=== PATIENT | female | born 1940 | race Caucasian/White ===

== ENCOUNTER 2022-03-25 00:18 | Inpatient (IN) | payer MEDICARE, OTHER ==
[~2022-03-25] VITALS: Ht 149.9 cm; Wt 49.9 kg
[2022-03-25 02:47] VITALS: BP 142/71
[2022-03-25] MEDS ORDERED: ACETAMINOPHEN 325 MG TABLET PO PRN (03:00)
[2022-03-25] MEDS ORDERED: MAGNESIUM HYDROXIDE 30 ML UDC PO PRN (03:00)
[2022-03-25] MEDS ORDERED: BLOOD SUGAR DIAGNOSTIC 1 EACH STRIP IN ONE (03:00)
[2022-03-25] MEDS ORDERED: TEMAZEPAM 7.5 MG CAPSULE PO PRN (03:00)
[2022-03-25] MEDS ORDERED: MAG HYDROX/AL HYDROX/SIMETH 30 ML UDC PO PRN (03:00)
[2022-03-25] MEDS ORDERED: DULO60CA45 PO (03:18)
[2022-03-25] MEDS ORDERED: ALEN70TA80 MT (03:18)
[2022-03-25] MEDS ORDERED: PREG25CA51 MT (03:18)
[2022-03-25] MEDS ORDERED: CELE100C98 MT (03:18)
[2022-03-25] MEDS ORDERED: GABA-532 MT (03:18)
[2022-03-25] MEDS ORDERED: CLON1TAB12 MT (03:18)
[2022-03-25] MEDS ORDERED: HYDR-4675 PO (03:18)
[2022-03-25] MEDS ORDERED: TRAZ-182 MT (03:18)
[2022-03-25] MEDS ORDERED: NALO4SPR (03:18)
[2022-03-25] MEDS ORDERED: LIDO1ADH43 TOP (03:18)
[2022-03-25] MEDS ORDERED: FLUT1BLS6 MT (03:18)
[2022-03-25] MEDS ORDERED: FAMO40TA7 MT (03:18)
[2022-03-25] MEDS ORDERED: LEVO75TA7 MT (03:18)
[2022-03-25] MEDS ORDERED: NICO-676 TP (03:23)
--- NOTE | 2022-03-25 03:27 | NUR ---
RN NOTE: ADMITTED A 81-Y/O, FEMALE, FROM [facility]. INITIALLY PT CAME FROM HOME. ADMITTED ON A 5150 HOLD FOR DTS/GD. PER HOLD, PATIENT PRESENTED TO THE ED FOR ALCOHOL INTOXICATION AND MADE SUICIDAL STATEMENTS TO DAUGHTER AND FRIEND SHE WANTS TO END HER LIFE. PT ALSO UNABLE TO PROVIDE SELF CARE PLAN AT THIS TIME. UPON FACE TO FACE EVALUATION, PATIENT IS ALERT AND ORIENTED X3, ANXIOUS, DEPRESSED, COOPERATIVE TO CARE. SKIN ASSESSMENT DONE. PT REFUSED FLU/PNEUMONIA VACCINE. PT ALSO REFUSED TO COMMENT ABOUT FLU/PNA VACCINATION AND REFUSING TO GET ONE. ALL BELONGINGS WERE SCREENED FOR CONTRABAND. PATIENT'S RIGHTS WERE DISCUSSED AND BOOKLET WAS GIVEN. CONTACTED DR. FAN AND HOSPITALIST ALYSSA MANDEL AND INFORMED THEM OF THE ADMISSION. BED IN LOWEST POSITION, LOCKED. SAFETY PRECAUTIONS MAINTAINED. WILL CONTINUE TO MONITOR Q15 MINS FOR MOOD, SAFETY AND BEHAVIOR. Addendum: 03/25/22 at 0553 by PARAS GALLEGO RN PATIENT HAS A HARD HEARING ON HER RIGHT EAR. PATIENT HAS NO HEARING AID.
[2022-03-25] MEDS ORDERED: CELECOXIB 100 MG CAPSULE PO PRN (03:30)
[2022-03-25] MEDS ORDERED: ALENDRONATE 70 MG TABLET PO SCH (06:00)
[2022-03-25] MEDS ORDERED: HYDROCODONE/APAP 5/325MG TABLET PO PRN (07:00)
[2022-03-25 08:00] VITALS: BP 144/85
[2022-03-25 08:07] LABS: CREATININE 0.6 mg/dL (0.6-1.3)
[2022-03-25 08:11] LABS: CHOLESTEROL 180 mg/dL (<200); HDL CHOLESTEROL 86 mg/dL (40-60); LDL 86 mg/dL (0-99); TRIGLYCERIDES 65 mg/dL (30-150)
[2022-03-25] MEDS: LEVOTHYROXINE SODIUM 75 MCG TABLET PO SCH (08:24)
[2022-03-25] MEDS ORDERED: PREGABALIN 25 MG CAPSULE PO SCH (09:00)
[2022-03-25] MEDS: PREGABALIN 25 MG CAPSULE PO SCH ×3 (09:00→17:00)
[2022-03-25] MEDS: LIDOCAINE 5% (PATCH) 1 EA PATCH TP SCH (09:38)
[2022-03-25] MEDS: NICOTINE PATCH (14MG) 14 MG PATCH.TD24 TD SCH (09:38)
[2022-03-25] MEDS: DULOXETINE HCL 30 MG CAPSULE.DR PO SCH (09:39)
--- NOTE | 2022-03-25 09:55 | NUR ---
NURSE NOTE: PT C/O PAIN AT LEVEL 9/10. NORCO PO ADMINISTERED ORDERED. PT CYNTHIA WELL. WILL CONT TO MONITOR.
--- NOTE | 2022-03-25 10:45 | NUR ---
NURSE NOTE: PER PT FEELING BETTER. NORCO EFFECTIVE AT THIS TIME. WILL CONT TO MONITOR.
--- NOTE | 2022-03-25 11:11 | NUR ---
PEGGY Clinical Note: Pt placed on a 5150 hold for GD and danger to self. Per hold, pt has been evicted and has been having suicidal thoughts. Pt has been drinking consistently. Patient was residing at [address] [place] [address]. Unsure if pt will return back. Pt's hold indicated that pt was evicted. Pt reported to this policy writer sales that she has a new apartment in [facility] but was unable to give address. Pt stated to contact friend Regis ([phone]) to gather further collateral.
--- NOTE | 2022-03-25 11:11 | NUR ---
PEGGY Initial Discharge Note: Patient was residing at [address] [place] [address]. Unsure if pt will return back. Pt's hold indicated that pt was evicted. Pt reported to this comic writer that she has a new apartment in [facility] but was unable to give address. Pt stated to contact friend Regis ([phone]) to gather further collateral. PEGGY will work with the pt, family, and MD to help coordinate appropriate discharge.
--- NOTE | 2022-03-25 11:12 | NUR ---
Social Work Note/Substance Abuse Intervention: Patient was provided with a brief substance abuse intervention and referred to [facility] ([phone]), [facility] ([phone]), and [facility] ([phone]) for drinking beer and wine.
--- NOTE | 2022-03-25 12:33 | NUR ---
PEGGY Family Contact: PEGGY contacted pt's daughter Faye ([phone]) and discussed treatment plan and discharge plan. PEGGY explained 1916/9075 process. She stated that pt does not have a place to go to and that she was evicted. She stated that she cannot go back to her friends house Regis he will not want her back. PEGGY will confirm with Regis. Daughter stated but would need a nursing facility.
--- NOTE | 2022-03-25 13:09 | NUR ---
PEGGY Friend Contact: SW attempted to contact pt's friend Regis ([phone]) per pt's request. SW left a detailed voicemail mentioning that pt stated that she can live with him. PEGGY requested for Regis to call back to confirm.
[2022-03-25] MEDS: HYDROCODONE/APAP 5/325MG TABLET PO PRN (15:35)
--- NOTE | 2022-03-25 15:40 | NUR ---
NURSE NOTE: PT STATES THAT SHE IS IN PAIN AGAIN. LEVEL 9/10. NOTIFIED AND CHANGED FREQUENCY OF NORCO. NORCO PO ADMINISTERED ORDERED. PT CYNTHIA WELL. WILL CONT TO MONITOR.
[2022-03-25 16:00] VITALS: BP 137/72
--- NOTE | 2022-03-25 16:36 | NUR ---
NURSE NOTE: PT STATED THAT SHE FEELS BETTER AT THIS TIME. NORCO EFFECTIVE AT THIS TIME. WILL CONT TO MONITOR.
[2022-03-25] MEDS: FAMOTIDINE (20 MG) 20 MG TABLET PO SCH (17:11)
[2022-03-25] MEDS: GABAPENTIN 100 MG CAPSULE PO SCH (17:11)
[2022-03-25] MEDS ORDERED: FAMOTIDINE 40 MG TABLET PO SCH (18:00)
--- NOTE | 2022-03-25 18:15 | NUR ---
NURSE NOTE: PT REFUSED TO TAKE THE LYRICA IN AM AND IN PM. AM DOSE WASTED WITH NAVJOT Devlin. PER PT SHE IS "ALERGIC", IT MAKES HER FEEL VERY BAD.
[2022-03-25 20:02] VITALS: BP 124/63
[2022-03-26] MEDS: HYDROCODONE/APAP 5/325MG TABLET PO PRN ×3 (03:13→17:08)
[2022-03-26] MEDS: clonazePAM 0.5 MG TABLET PO PRN ×2 (05:28→12:29)
[2022-03-26 08:00] VITALS: BP 124/64
--- NOTE | 2022-03-26 08:38 | NUR ---
SW Friend Contact: Pt's friend Regis ([phone]) left a voicemail to this process description writer stating that pt cannot live with him.
[2022-03-26] MEDS: LIDOCAINE 5% (PATCH) 1 EA PATCH TP SCH (08:40)
[2022-03-26] MEDS: LEVOTHYROXINE SODIUM 75 MCG TABLET PO SCH (08:40)
[2022-03-26] MEDS: NICOTINE PATCH (14MG) 14 MG PATCH.TD24 TD SCH (08:40)
[2022-03-26] MEDS: DULOXETINE HCL 30 MG CAPSULE.DR PO SCH (08:40)
[2022-03-26] MEDS: PREGABALIN 25 MG CAPSULE PO SCH ×3 (08:40→16:51)
--- NOTE | 2022-03-26 10:53 | NUR ---
PEGGY Note: PEGGY spoke with pt and stated that Regis her friend he stated that he does not have any room available for her and that she would need placement. PEGGY spoke with pt and pt stated she would want an assisted living. Addendum: 03/26/22 at 1055 by PEGGY CASEY Pt would want her dog with her.
--- NOTE | 2022-03-26 10:54 | NUR ---
Facility Contact: PEGGY spoke with Munira ([phone]) dishwasher busser for placement. She stated that pt is accepted to one of her facilities and will send this fiction and nonfiction writer prose the address. She stated that she would want her dog with her. Munira stated pt is welcomed with her dog.
--- NOTE | 2022-03-26 11:00 | NUR ---
RN Notes: Received pt. eating in the dining room and responsive to staffs. No distress and no agitation noted. Ate 75% for breakfast, refused for Lyrica and will make her sedated and compliant on the rest of the meds. Pt. is complaining on back pain and prn of [place] given. Pt. seen walking with a walker and needy. Encouraged to verbalize feelings and motivated to attend group activity. Needs attended and will continue to monitor for safety.
--- NOTE | 2022-03-26 13:26 | NUR ---
PEGGY Family Contact: SW contacted pt's daughter Faye ([phone]) and notified pt's plan of discharged that she is agreeing of going to an assisted living.
[2022-03-26 16:00] VITALS: BP 145/75
--- NOTE | 2022-03-26 16:51 | NUR ---
Pt. refused to take Lyrica and said it will make her nodding her head and it will make her not to function.
[2022-03-26] MEDS: GABAPENTIN 100 MG CAPSULE PO SCH (17:08)
[2022-03-26] MEDS: FAMOTIDINE (20 MG) 20 MG TABLET PO SCH (17:08)
--- NOTE | 2022-03-26 19:30 | NUR ---
GPS RN NOTE, RECEIVED PATIENT AWAKE AND IN BED, NO S/S OR COMPLAINTS OF PAIN AT THIS TIME. PATIENT IS DISPLAYING NO S/S OF APPARENT DISTRESS AT THIS TIME. PATIENT BREATHING IS UNLABORED WITH EQUAL RISE AND FALL OF THE CHEST. PATIENT IS ALERT AND ORIENTED X 3 ON ROOM AIR WITH A SPO2 95%. PATIENT IS COMPLIANT WITH MEDICATIONS, HARD OF HEARING, DEPRESSED, ISOLATIVE, POLITE, AND COOPERATIVE. PATIENT DENIES SUICIDAL AND HOMICIDAL IDEATIONS AT THIS TIME. PATIENT ASSISTED WITH TURNING AND REPOSITIONING Q2HR AND PRN FOR COMFORT AND CIRCULATION. PATIENT HAS NO NEEDS AT THIS TIME. PATIENT EDUCATED ON THE USE OF THE CALL DOTSON. PATIENT BED SIDE RAILS UP X 2 FOR SAFETY. PATIENT BED IS LOCKED, LOW, WITH BED ALARM ON. WILL CONTINUE TO MONITOR THIS PATIENT Q15 MINUTES WITH THE HELP OF STAFF TO MAINTAIN SAFETY.
[2022-03-26 19:54] VITALS: BP 121/65
[2022-03-27] MEDS: HYDROCODONE/APAP 5/325MG TABLET PO PRN ×3 (03:18→21:09)
--- NOTE | 2022-03-27 03:18 | NUR ---
GPS RN NOTE, PATIENT HAS A COMPLAINT OF LOWER BACK PAIN AT 7 OUT OF 10 ON THE PAIN SCALE AND IS REQUESTING NORCO AT THIS TIME. PATIENT VITAL SIGNS ARE STABLE. GAVE NORCO 5-325 1 TAB PO Q6HR PRN ORDERED. WILL REASSESS PAIN AND I WILL CONTINUE TO MONITOR THIS PATIENT WITH THE HELP OF STAFF.
[2022-03-27] MEDS: clonazePAM 0.5 MG TABLET PO PRN ×2 (06:38→11:31)
--- NOTE | 2022-03-27 06:38 | NUR ---
GPS RN NOTE, PATIENT HAS A COMPLAINT OF FEELING ANXIOUS AND IS REQUESTING KLONOPIN AT THIS TIME. PATIENT VITAL SIGNS ARE STABLE. GAVE KLONOPIN 0.5MG PO Q4HR PRN ORDERED. WILL REASSESS FOR ANXIETY AND I WILL CONTINUE TO MONITOR THIS PATIENT WITH THE HELP OF STAFF.
[2022-03-27 08:00] VITALS: BP 129/70
[2022-03-27] MEDS: LEVOTHYROXINE SODIUM 75 MCG TABLET PO SCH (08:59)
[2022-03-27] MEDS: DULOXETINE HCL 30 MG CAPSULE.DR PO SCH (08:59)
[2022-03-27] MEDS: NICOTINE PATCH (14MG) 14 MG PATCH.TD24 TD SCH (08:59)
[2022-03-27] MEDS: PREGABALIN 25 MG CAPSULE PO SCH ×2 (09:00→17:00)
[2022-03-27] MEDS: LIDOCAINE 5% (PATCH) 1 EA PATCH TP SCH (09:16)
[2022-03-27] MEDS: FLUTICASONE/VILANTEROL 1 EACH BLST.W.DEV IH SCH (10:15)
[2022-03-27 16:00] VITALS: BP 135/74
[2022-03-27] MEDS: FAMOTIDINE (20 MG) 20 MG TABLET PO SCH (17:38)
[2022-03-27] MEDS: GABAPENTIN 100 MG CAPSULE PO SCH (17:42)
--- NOTE | 2022-03-27 17:43 | NUR ---
GPS/RN PT REFUSED GABAPENTIN PO . REPORTED TO HAVE DIZZINESS EPISODES WITH GABAPENTIN BEFORE.
[2022-03-27 20:00] VITALS: BP 135/74
[2022-03-28] MEDS: HYDROCODONE/APAP 5/325MG TABLET PO PRN ×3 (02:26→16:11)
[2022-03-28] MEDS: LEVOTHYROXINE SODIUM 75 MCG TABLET PO SCH (07:28)
[2022-03-28 08:00] VITALS: BP 126/70
[2022-03-28] MEDS: LIDOCAINE 5% (PATCH) 1 EA PATCH TP SCH (09:30)
[2022-03-28] MEDS: PREGABALIN 25 MG CAPSULE PO SCH ×2 (09:30→16:11)
[2022-03-28] MEDS: NICOTINE PATCH (14MG) 14 MG PATCH.TD24 TD SCH (09:30)
[2022-03-28] MEDS: DULOXETINE HCL 30 MG CAPSULE.DR PO SCH (09:30)
--- NOTE | 2022-03-28 09:31 | NUR ---
GPS RN NOTE, PATIENT C/O OF LOWER BACK PAIN WITH PAIN SCALE OF 8/10 AND REQUESTED NORCO AT THIS TIME. BREATHING EVEN AND UNLABORED, VITAL SIGNS ARE STABLE. ADMINISTERED ORDERED AND WILL REASSESS FOR PAIN. WILL CONTINUE TO MONITOR PATIENT THROUGHOUT SHIFT WITH THE HELP OF STAFF.
[2022-03-28] MEDS: FLUTICASONE/VILANTEROL 1 EACH BLST.W.DEV IH SCH (09:55)
[2022-03-28 11:27] LABS: BASOPHILS % (AUTO) 0.3 % (0.0-2.0); EOSINOPHILS % (AUTO) 1.8 % (0.0-6.0); HEMATOCRIT 38 % (33-45); HEMOGLOBIN 12.4 g/dL (11.5-14.8); LYMPHOCYTES # (AUTO) 0.9 K/uL (0.8-4.8); LYMPHOCYTES % (AUTO) 17.1 % (20.0-44.0); MEAN CORPUSCULAR HGB CONC 33 g/dl (31.0-36.0); MEAN CORPUSCULAR VOLUME 103 fL (82-100); MONOCYTES # (AUTO) 0.5 K/uL (0.1-1.30); MONOCYTES % (AUTO) 8.8 % (2.0-12.0); NEUTROPHILS # (AUTO) 3.8 K/uL (1.8-8.9); PLATELET COUNT (AUTO) 219 K/uL (150-450); RED BLOOD CELL COUNT(AUTO) 3.69 MIL/uL (4.0-5.2); WHITE BLOOD COUNT (AUTO) 5.2 K/uL (4.3-11.0)
[2022-03-28 11:47] LABS: ALBUMIN 3.7 g/dL (3.4-5.0); BILIRUBIN,TOTAL 0.3 mg/dL (0.2-1.0); CALCIUM, SERUM 8.5 mg/dL (8.5-10.1); CREATININE 0.9 mg/dL (0.6-1.3); TOTAL PROTEIN, SERUM 6.8 g/dL (6.4-8.2)
[2022-03-28] MEDS: clonazePAM 0.5 MG TABLET PO PRN (12:29)
--- NOTE | 2022-03-28 12:29 | NUR ---
GPS RN NOTE: PATIENT C/O FEELING ANXIOUS AT THIS TIME, REDIRECTED PATIENT AND ADMINISTERED MED KLONOPIN ORDERED WHEN INTERVENTION WAS NOT SUCCESSFUL. WILL REASSESS PATIENT FOR EFFECTIVENESS OF MEDICATION.
--- NOTE | 2022-03-28 13:29 | NUR ---
PATIENT IN BED IN NO ACUTE DISTRESS NOTED, NO S/S ANXIETY NOTED AT THIS TIME. WILL CONTINUE TO MONITOR PATIENT FOR SAFETY. MEDICATION EFFECTIVE.
[2022-03-28 16:01] VITALS: BP 123/66
[2022-03-28] MEDS: GABAPENTIN 100 MG CAPSULE PO SCH (18:11)
[2022-03-28] MEDS: FAMOTIDINE (20 MG) 20 MG TABLET PO SCH (18:11)
--- NOTE | 2022-03-28 18:29 | NUR ---
GPS RN NOTE, PATIENT AWAKE, ALERT, ORIENTED X 3. PATIENT HAS NO S/S OF PAIN OR DISCOMFORT AT THIS TIME. NO RESPIRATORY DISTRESS NOTED, BREATHING EVEN AND UNLABORED. PATIENT IS COMPLIANT WITH MEDICATIONS, HARD OF HEARING, DEPRESSED,ISOLATIVE, POLITE, AND COOPERATIVE. PATIENT DENIES SUICIDAL AND HOMICIDAL IDEATIONS THE ENTIRE SHIFT. PATIENT ASSISTED WITH TURNING AND REPOSITIONING Q2HR AND PRN FOR COMFORT AND CIRCULATION. ALL NEEDS MET AND ANTICIPATED. BED LOCKED AND IN LOWEST POSITION WITH BED ALARM ON. PATIENT BED SIDE RAILS UP X 2 FOR SAFETY. WILL ENDORSE TO INCOMING SHIFT FOR CONTINUITY OF CARE.
[2022-03-28 20:00] VITALS: BP 124/56
[2022-03-29] MEDS: HYDROCODONE/APAP 5/325MG TABLET PO PRN ×3 (04:18→20:47)
[2022-03-29 08:00] VITALS: BP 130/71
[2022-03-29] MEDS: FLUTICASONE/VILANTEROL 1 EACH BLST.W.DEV IH SCH (08:41)
[2022-03-29] MEDS: GABAPENTIN 100 MG CAPSULE PO SCH (08:42)
[2022-03-29] MEDS: PREGABALIN 25 MG CAPSULE PO SCH ×2 (08:42→17:00)
[2022-03-29] MEDS: LEVOTHYROXINE SODIUM 75 MCG TABLET PO SCH (08:44)
[2022-03-29] MEDS: DULOXETINE HCL 30 MG CAPSULE.DR PO SCH (08:44)
[2022-03-29] MEDS: NICOTINE PATCH (14MG) 14 MG PATCH.TD24 TD SCH (08:44)
[2022-03-29] MEDS: LIDOCAINE 5% (PATCH) 1 EA PATCH TP SCH (08:44)
--- NOTE | 2022-03-29 08:45 | NUR ---
GPS/RN PT REFUSED NEURONTIN AND GI OFFERED X3. STATES : "IT MAKES ME DOPEY..."
[2022-03-29] MEDS: clonazePAM 0.5 MG TABLET PO PRN ×2 (09:22→21:36)
[2022-03-29 16:00] VITALS: BP 110/61
[2022-03-29] MEDS: FAMOTIDINE (20 MG) 20 MG TABLET PO SCH (18:36)
[2022-03-29 20:12] VITALS: BP 109/58
[2022-03-30] MEDS: HYDROCODONE/APAP 5/325MG TABLET PO PRN ×3 (06:05→20:03)
[2022-03-30] MEDS: clonazePAM 0.5 MG TABLET PO PRN (06:47)
[2022-03-30 08:00] VITALS: BP 137/68
[2022-03-30] MEDS: NICOTINE PATCH (14MG) 14 MG PATCH.TD24 TD SCH (08:43)
[2022-03-30] MEDS: DULOXETINE HCL 30 MG CAPSULE.DR PO SCH (08:43)
[2022-03-30] MEDS: LEVOTHYROXINE SODIUM 75 MCG TABLET PO SCH (08:43)
[2022-03-30] MEDS: PREGABALIN 25 MG CAPSULE PO SCH ×2 (08:43→17:52)
[2022-03-30] MEDS: LIDOCAINE 5% (PATCH) 1 EA PATCH TP SCH (08:43)
[2022-03-30] MEDS: FLUTICASONE/VILANTEROL 1 EACH BLST.W.DEV IH SCH (08:44)
--- NOTE | 2022-03-30 09:02 | NUR ---
Friend Contact: SW received a call from Raleigh Garcia ([phone]) and he stated to this keno writer / runner that pt has a stable place and that she has a lease with him. Located at [address] [place] [phone].
--- NOTE | 2022-03-30 12:26 | NUR ---
NURSE NOTE: PT C/O PAIN AT 12/27. REQUESTED NORCO AND ADMINISTERED ORDERED. PT CYNTHIA WELL. WILL CONT TO MONITOR.
--- NOTE | 2022-03-30 13:26 | NUR ---
NURSE NOTE: PT STATED THAT PAIN HAS SUBSIDED. NORCO EFFECTIVE AT THIS TIME. WILL CONT TO MONITOR.
[2022-03-30 16:00] VITALS: BP 103/60
[2022-03-30] MEDS: FAMOTIDINE (20 MG) 20 MG TABLET PO SCH (17:53)
[2022-03-30] MEDS: GABAPENTIN 100 MG CAPSULE PO SCH (17:53)
[2022-03-30 19:43] VITALS: BP 116/61
[2022-03-31] MEDS: HYDROCODONE/APAP 5/325MG TABLET PO PRN ×2 (06:22→14:16)
--- NOTE | 2022-03-31 07:20 | NUR ---
rn opening note pt alert and oriented x3. pt is ambulatorty with walker.able to make needs known and verbally responsive. all safety precautions in place. no signs of pain or discomfort at this time.
[2022-03-31] MEDS: LEVOTHYROXINE SODIUM 75 MCG TABLET PO SCH (07:43)
[2022-03-31] MEDS: clonazePAM 0.5 MG TABLET PO PRN (07:43)
[2022-03-31 08:00] VITALS: BP 123/72
--- NOTE | 2022-03-31 08:56 | NUR ---
SW Discharge Note: Patient will be discharged back home located at [address] [place] [id number]; ([phone]). Pts friend Raleigh Garcia will poultry picker pt between 2-3PM. Pts roommate Raleigh Garcia ([phone]) is aware and agreeable. Pts daughter Faye ([phone]) is aware and agreeable. Pt denies suicidal or homicidal ideation. Pt denies visual/auditory hallucinations. Patient referred to [facility] for primary doctor located at [address] [place] [address], [address], [place] [address] ([phone]). Patient referred for intake evaluation (psychiatry) at [facility] located at [address] [place] [id number]; ([phone]). Pt presents with euthymic mood and congruent affect.
[2022-03-31] MEDS: PREGABALIN 25 MG CAPSULE PO SCH (09:00)
[2022-03-31] MEDS: DULOXETINE HCL 30 MG CAPSULE.DR PO SCH (10:28)
[2022-03-31] MEDS: NICOTINE PATCH (14MG) 14 MG PATCH.TD24 TD SCH (10:29)
[2022-03-31] MEDS: FLUTICASONE/VILANTEROL 1 EACH BLST.W.DEV IH SCH (10:29)
[2022-03-31] MEDS: LIDOCAINE 5% (PATCH) 1 EA PATCH TP SCH (10:29)
--- NOTE | 2022-03-31 11:00 | NUR ---
RN-NOTES PATIENT HAD A DISCHARGE ORDER FRO ROBYN VALENCIA.
--- NOTE | 2022-03-31 15:53 | NUR ---
rn radiation oncology note pt discharged. went over discharge instructions. verbalized understanding and signed paperwork. pt discharged with pt belongings and hearing aids. pt picked up by patient's friend. pt signed paperwork upon discharged. escorted out by nursing staff by wheelchair. pt picked up patient's friend.
--- NOTE | 2022-03-31 15:54 | NUR ---
internal combustion engine inspector note pt denies suicidal ideation,homicial, auditory, and visual hallucinations
== END 2022-03-31 15:00 | disposition home or self-care (01) | DRG 880 ==
LOC: GPS 02:17
PROVIDERS: ADMIT Nurse Practitioner Psychiatric/Mental Health; ATTEND Internal Medicine
DX: F41.1 Generalized anxiety disorder (principal); R45.851 Suicidal ideations; F32.9 Major depressive disorder, single episode, unspecified; Z79.83 Long term (current) use of bisphosphonates; Z79.899 Other long term (current) drug therapy; Z79.890 Hormone replacement therapy; Z73.6 Limitation of activities due to disability; R53.1 Weakness; R27.8 Other lack of coordination; Z91.81 History of falling; E03.9 Hypothyroidism, unspecified; G62.9 Polyneuropathy, unspecified; G89.4 Chronic pain syndrome; Z87.891 Personal history of nicotine dependence; F29 Unspecified psychosis not due to a substance or known physiological condition; J45.909 Unspecified asthma, uncomplicated; M81.0 Age-related osteoporosis without current pathological fracture; M19.90 Unspecified osteoarthritis, unspecified site; Z91.14 Patient's other noncompliance with medication regimen; Z91.51 Personal history of suicidal behavior; Z59.00 Homelessness unspecified; F10.91 Alcohol use, unspecified, in remission
CPT/HCPCS: 36415; 80053-TC; 80061-TC; 82565-TC; 82962-TC; 85025-TC; 87081-TC